=== PATIENT | male | born 1990 | race Two or more races ===

== ENCOUNTER 2019-11-19 16:57 | Emergency (ER) | payer OTHER ==
[~2019-11-19] VITALS: Ht 167.6 cm; Wt 74.1 kg
[2019-11-19] MEDS ORDERED: ACET-683 PO (17:03)
--- NOTE | 2019-11-19 17:53 | REPVR ---
PROCEDURE INFORMATION: Exam: XR Right Hand Exam date and time: 11/19/2019 5:26 PM Age: 29 years old Clinical indication: Other: Fall; Additional info: Fall onto ext TECHNIQUE: Imaging protocol: XR Right hand. Views: 3 or more views. COMPARISON: No relevant prior studies available. FINDINGS: Bones/joints: Fractures at the base of the 4th and 5th metacarpal bones. Soft tissues: Marked soft tissue edema lateral aspect of the hand. IMPRESSION: 1. Fractures at the base of the 4th and 5th metacarpal bones. 2. Marked soft tissue edema lateral aspect of the hand. Electronically signed by: Jorge Mike On 11/19/2019 17:53:11 PM
[2019-11-19] MEDS ORDERED: NORCO, ANEXSIA 5/325MG TABLET (HYDROcodone/ACETAMINOPHEN) PO ONE (18:00)
[2019-11-19] MEDS ORDERED: NORC1TAB7 PO (18:23)
[2019-11-19 18:32] VITALS: BP 118/61
== END 2019-11-19 18:33 | disposition home or self-care (01) ==
LOC: M ED 16:57
DX: S62.314A Displaced fracture of base of fourth metacarpal bone, right hand, initial encounter for closed fracture (principal); S62.316A Displaced fracture of base of fifth metacarpal bone, right hand, initial encounter for closed fracture; W01.0XXA Fall on same level from slipping, tripping and stumbling without subsequent striking against object, initial encounter; Y92.89 Other specified places as the place of occurrence of the external cause